=== PATIENT | male | born 1965 | race African-American/Black ===

== ENCOUNTER 2016-05-04 19:00 | Emergency (ER) | payer OTHER ==
[~2016-05-04] VITALS: Ht 172.7 cm; Wt 93.6 kg
[~2016-05-04 19:00] MED LIST: PERC5TAB12 PO
[2016-05-04 19:08] VITALS: BP 150/98; PULSE 77; RESP 16; TEMP 99; O2SAT 96
[2016-05-04 19:15] VITALS: BP 150/98; PULSE 77; RESP 16; TEMP 99; O2SAT 96
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
[2016-05-04] MEDS ORDERED: CYCLOBENZAPRINE HCL 10 MG TAB PO ONE (20:15)
[2016-05-04] MEDS ORDERED: ACETAMINOPHEN/HYDROcodone 325 MG/5 MG TAB PO ONE (20:15)
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
[2016-05-04] MEDS ORDERED: IBUP800T23 PO (21:06)
[2016-05-04] MEDS ORDERED: CYCL1TAB29 PO (21:06)
== END 2016-05-04 21:10 | disposition home or self-care (01) ==
LOC: PHEFT 19:00
DX: M79.1 Myalgia (principal); M62.838 Other muscle spasm; V43.52XA Car driver injured in collision with other type car in traffic accident, initial encounter; Y93.9 Activity, unspecified; Y92.488 Other paved roadways as the place of occurrence of the external cause
CPT/HCPCS: 73610; 99284